=== PATIENT | male | born 1960 | race Hispanic/Latino ===

== ENCOUNTER 2016-08-04 07:02 | Day surgery (SDC) | payer MEDICARE ==
[~2016-08-04 07:02] MED LIST: ANCEF/STERILE WATER 2 GM/20 ML 2 GM/20 ML SYRINGE IV NR; NACL 0.9% 1000 ML 1,000 ML IV SCH
[2016-08-04 07:57] LABS: Basophils % (Auto) 1.2 % (0.0-1.8); Eosinophils % (Auto) 1.9 % (0.0-4.3); Hematocrit 52.1 % (35.5-45.6); Hemoglobin 17.6 gm/dl (11.8-15.2); Mean Corpuscular HGB Conc 34 % (32-34); Mean Corpuscular Hemoglobin 31 pg (28-32); Mean Corpuscular Volume 91 fl (84-94); Platelet Count 285 K/mm3 (140-440); Red Blood Count 5.71 M/mm3 (3.65-5.03); Red Cell Distribution Width 15.1 % (13.2-15.2); White Blood Count 7.3 K/mm3 (4.5-11.0)
[2016-08-04 08:08] LABS: INR 0.98 (0.87-1.13)
[2016-08-04 08:10] LABS: Anion Gap 18 mmol/L; BUN/Creatinine Ratio 13.33; Blood Urea Nitrogen 12 mg/dL (9-20); Calcium 8.7 mg/dL (8.4-10.2); Carbon Dioxide 22 mmol/L (22-30); Chloride 100.8 mmol/L (98-107); Glucose 106 mg/dL (75-100); Potassium 4.3 mmol/L (3.6-5.0); Sodium 136 mmol/L (137-145)
[2016-08-04] MEDS ORDERED: HEPARIN/NS 5000 UNIT/500ML(CATH LAB) 1,000 ML IR ONE (09:19)
[2016-08-04] MEDS ORDERED: HEPARIN 10,000 UNITS/10 ML ONE (09:19)
[2016-08-04] MEDS ORDERED: XYLOCAINE 1%/ EPI 1:100,000 INFILTRATI ONE (09:19)
[2016-08-04] MEDS: VERSED ONE ×2 (10:30→10:38)
[2016-08-04] MEDS: SUBLIMAZE ONE ×4 (10:33→11:19)
[2016-08-04] MEDS ORDERED: NACL 0.9% 1000 ML 0 ML ONE (10:50)
[2016-08-04] MEDS ORDERED: NITROGLYCERIN SYRINGE 3 ML ONE (11:14)
--- NOTE | 2016-08-04 11:29 | Short Stay Summary ---
Short Stay Documentation Date of service: 08/04/16 Narrative H&P: See H&P - History H&P: obtained from office - Allergies and Medications Current Medications: Allergies No Known Allergies Allergy (Verified 06/14/15 06:06) Home Medications Medication Instructions Recorded Confirmed Last Taken Type HYDROcodone/APAP 5-325 [[place] 2 each PO Q6H PRN #60 tablet 02/06/15 08/04/1607/17 Rx 5-325 mg TAB] 2 tab Gabapentin [Neurontin] 300 mg PO Q8HR #90 capsule 06/14/15 08/04/16 08/03/16 Rx 300mg Ranitidine HCl [Acid Sewing Machine Operator Zipper] 150 mg PO QDAY 06/14/15 08/04/16 08/03/16 History 150mg Clopidogrel Bisulfate [Plavix] 75 mg PO DAILY 08/04/16 08/04/16 08/04/16 History Active Medications Cefazolin Sodium (Ancef/Sterile Water 2 Gm/20 Ml) 2 gm in 20 mls @ 80 mls/hr IV PREOP NR PRN Reason: Protocol Stop: 08/04/16 23:59 Sodium Chloride (Nacl 0.9% 1000 Ml) 1,000 mls @ 42 mls/hr IV DIRECT JYOTI Last Admin: 08/04/16 08:10 Dose: 42 mls/hr - Brief post op/procedure progress note Date of procedure: 08/04/16 Pre-op diagnosis: PVD with LLE Claudication Post-op diagnosis: same Procedure: 1. Ultrasound Guided Access Right Common Femoral Artery 2. Diagnostic Aortogram With Left Lower Extremity Runoff (No Previous Films for Comparison) 3. Angioplasty and Stent of Left Popliteal Artery with 7 x 40 EverFlex Stent and 6 x 10 cm Viabahn Stent Graft 4. Closure of Right Femoral Arteriotomy with ProGlide Closure Device 5. Radiologic Supervision with Interpretation Anesthesia: local, other (IV sedation) Surgeon: IFTIKHAR CORDON Estimated blood loss: minimal Pathology: none Condition: stable - Disposition Condition at discharge: Good Disposition: DISCHARGED TO HOME OR SELFCARE Short Stay Discharge Plan Activity: other (no strenuous activity for 24 hours) Wound: remove dressing (48 hours) Follow up with: IFTIKHAR CORDON MD [Staff Physician] - 14 Days
--- NOTE | 2016-08-04 11:33 | Operative Report ---
Operative Report Operative Report: Date of Procedure: 08/04/2016 Pre-operative Diagnosis: PVD with Left Lower Extremity Claudication Post-operative Diagnosis: Same Procedure(s): 1. Ultrasound Guided Access Right Common Femoral Artery 2. Diagnostic Aortogram With Left Lower Extremity Runoff (No Previous Films for Comparison) 3. Angioplasty and Stent of Left Popliteal Artery with 7 x 40 EverFlex Stent and 6 x 10 cm Viabahn Stent Graft 4. Closure of Right Femoral Arteriotomy with ProGlide Closure Device 5. Radiologic Supervision with Interpretation Surgeon: Tony Schmidt M.D. Playground Aide: None Anesthesia: Local and IV sedation EBL: Minimal Counts: Correct Complications: None Condition: Stable Specimen: None Indication: The patient is a 55-year-old male with a history of peripheral vascular disease and previous intervention on his left lower extremity. He presented to the office with complaints of claudication at short distances and no palpable distal pulses. An ultrasound suggests that he had SFA and popliteal occlusive disease. He was offered an arteriogram. He was given the risks, benefits, and alternative procedures and consented to procedure. Angiographic Findings: The aortogram demonstrated bilateral renal arteries were widely patent. The aorta and bilateral common iliacs were widely patent. The left lower extremity runoff demonstrated the hypogastric and the external iliac was widely patent. The common femoral artery and the proximal mid SFA were widely patent. There was occlusion at the distal SFA at the adductor hiatus with occlusion of the stent distance distal to the occlusion and reconstitution of the popliteal artery behind the knee. The patient has 2 vessel runoff with an anterior tibial artery and peroneal artery are widely patent. The posterior tibial artery occluded shortly after discharge. After intervention SFA and popliteal arteries are widely patent with less than 10% residual stenosis. Description of Procedure: The patient was brought to the radiographer cardiac catheterization and laid in supine position. After he was sedated in his right groin was prepped and draped in normal sterile fashion. Ultrasound was used to identify the right common femoral artery and the overlying skin and soft tissue was anesthetized with lidocaine. A small stab incision was made and then a micropuncture technique was used with ultrasound guidance into the right common femoral artery in the 5 Faroese sheath was placed by Seldinger technique. An Omni Flush catheter was advanced to the aorta and aortogram was performed. An Omni Flush catheter and Bentson wire was advanced up and over the bifurcation and then a left lower extremity runoff was performed with the previously described findings. An advantage wire was advanced down into the SFA to the level occlusion and then a 7 x 65 destination sheath was placed by Seldinger technique. Multiple wire and catheter combinations were used to attempt crossing the occlusion. Eventually the use of a 7 Faroese guide catheter with a 0.035 crossing catheter and an advantage wire were successful and crossing the occlusion and reentering in the popliteal artery at the knee. This was confirmed with arteriogram. Following angioplasty of the entire occluded area using a 6 x 200 balloon. There were areas of residual stenosis at each end of the stent as well as in the popliteal artery just distal to the stent. I treated the popliteal lesion distal to the stent with a 6 x 10 cm Viabahn stent graft that extended from the popliteal artery just above the knee to the midportion of the previous stent. I treated the stenosis at the proximal portion of the stent with a 7 x 40 self expanding EverFlex stent. I postdilated the stent with a 6 mm balloon. The final arteriogram demonstrated patent arteries with less than 10% residual stenosis. I pulled the sheath back into the right external iliac artery and advanced to [employer] wire into the aorta. I used a ProGlide closure device to close the right femoral arteriotomy. The patient tolerated the procedure well. All sponge, needle, and instrument counts were correct. The patient was taken to the recovery area in stable condition.
[2016-08-04 12:30] VITALS: BP 136/68
--- NOTE | 2016-08-08 10:18 | Vascular Lab Report ---
MISCELLANEOUS VESSEL IDENTIFICATION: COMMENTS ON THE SCAN: The right common femoral artery was identified and under real-time ultrasound guidance was cannulated. IMPRESSION: Successful ultrasound guided arterial cannulation.
== END 2016-08-04 13:00 | disposition home or self-care (01) ==
LOC: OPU 07:02
PROVIDERS: ATTEND Surgery Vascular Surgery
DX: I70.245 Atherosclerosis of native arteries of left leg with ulceration of other part of foot (principal); I25.2 Old myocardial infarction; I50.9 Heart failure, unspecified; F17.210 Nicotine dependence, cigarettes, uncomplicated; Z98.890 Other specified postprocedural states; Z79.899 Other long term (current) drug therapy
CPT/HCPCS: 36415; 37226; 75625; 75710; 76937; 80048; 85025; 85610; C1725; C1760; C1769; C1874; C1876; C1887; J1644; J2250; J3010; J7030; Q9967